=== PATIENT | male | born 1945 | race Caucasian/White ===

== ENCOUNTER 2020-04-10 10:33 | Outpatient (CLI) | payer MEDICARE, SELFPAY ==
--- NOTE | ~2020-04-10 | CT_ITS ---
EXAMINATION: CT soft tissue neck w con DATE: 04/10/2020 11:20 INDICATION: Neck swelling and pain TECHNIQUE: Computed tomography (CT) of the neck was performed with 75 mL Omnipaque-350 intravenous co ntrast. Automated exposure control and iterative reconstruction technique were employed. The dose-leif gth product was 590.09 mGy-cm. COMPARISON: None FINDINGS: Thyroid gland is normal. Submandibular and parotid glands are normal and symmetric. There are scatt ered normal-sized lymph nodes in the neck, no lymphadenopathy. No masses or abnormal fluid collectio ns identified. Mild atherosclerotic disease along the bilateral carotid bulbs and at the bilateral ca rotid siphons, all without hemodynamically significant stenosis. Normal epiglottis. Airway is unremar kable. Moderate to severe cervical spondylosis. Orbits are normal. Mild mucosal thickening in the elieser ateral ethmoid and left maxillary sinuses with mucous retention cyst at the inferior left maxillary s inus. Mastoid air cells and middle ear cavities are clear. Mild respiratory motion with no evident ai rspace disease in the visualized upper lungs. Calcified subcarinal lymph nodes consistent with old gr anulomatous disease. Visualized superior mediastinum is otherwise unremarkable. IMPRESSION: 1. No focal soft tissue swelling, abnormal mass or fluid collections identified to explain patient's reported facial swelling along the jaw line. Reviewed, dictated and finalized at location A.
[2020-04-10 11:12] LABS: Estimated Glomerular Filt Rate > 60
== END 2020-04-10 10:34 | disposition home or self-care (01) ==
PROVIDERS: PCP Internal Medicine; Visit Provider Nurse Practitioner
DX: R22.1 Localized swelling, mass and lump, neck (principal)
CPT/HCPCS: 70491; Q9967

== ENCOUNTER 2023-09-08 13:42 | Outpatient (CLI) | payer MEDICARE, SELFPAY ==
--- NOTE | ~2023-09-08 | XR_ITS ---
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 The procedure including the risks, benefits, and alternatives was discussed with the pat ient. Risks discussed included bleeding and infection. The patient understood the risks and agreed to proceed. Attention was first turned to the right glenohumeral joint. The skin overlying the rotator cuff interval of the right glenohumeral joint was prepped and draped in usual sterile fashion. Anest hetic was administered with 1% lidocaine subcutaneously. A 22 G needle was advanced under fluoroscop ic guidance into the joint. Injection of 1 mL of Omnipaque 240 confirmed intra-articular position of the needle. Subsequently, injectate consisting of 5 mm a 4:1 mixture of 1% lidocaine: 80 mg/mL Depo -Medrol for a total dosage of 80 mg Depo-Medrol was instilled. Washout of contrast was seen confirmin g intra-articular administration. The needle was removed and the entry site was cleaned and dressed. Attention was then turned to the left humeral joint. The skin overlying the rotator cuff interval of the left glenohumeral joint was prepped and draped in usual sterile fashion. Anesthetic was administ ered with 1% lidocaine subcutaneously. A 22 G needle was advanced under fluoroscopic guidance into t he joint. Injection of 1 mL of Omnipaque 240 confirmed intra-articular position of the needle. Subs equently, injectate consisting of 5 mm a 4:1 mixture of 1% lidocaine: 80 mg/mL Depo-Medrol for a tota l dosage of 80 mg Depo-Medrol was instilled. Washout of contrast was seen confirming intra-articular administration. The needle was removed and the entry site was cleaned and dressed. There were no imme diate complications. Fluoroscopy exposure time for the combined procedures was 0.2 minutes. The total number of images was 4. FINDINGS: Real-time fluoroscopy demonstrates the needle and contrast in both the left and right gleno humeral joints. Patient's pain prior to procedure:5/10. Patient's pain following the procedure: 0/10 . IMPRESSION: 1. Successful right glenohumeral joint injection of local anesthetic and steroid with decrease in the patient's presenting pain. 2. Successful left glenohumeral joint injection of local anesthetic and steroid with decrease in the patient's presenting pain. Reviewed, dictated and finalized at location A. IMPRESSION: 1. Successful right glenohumeral joint injection of local anesthetic and steroi d with decrease in the patient's presenting pain. 2. Successful left glenohumeral joint injection of local anesthetic and steroid with decrease in the patient's presenting pain.
== END 2023-09-08 13:43 | disposition home or self-care (01) ==
LOC: ANHIMG 13:43
PROVIDERS: PCP Internal Medicine; Visit Provider Orthopaedic Surgery
DX: M16.0 Bilateral primary osteoarthritis of hip (principal)
CPT/HCPCS: 20610; 77002; J1040; Q9966

== ENCOUNTER 2024-04-25 14:03 | Outpatient (CLI) | payer MEDICARE, SELFPAY ==
--- NOTE | ~2024-04-25 | XR_ITS ---
EXAMINATION: XR lg joint inject/asp add DATE: 04/25/2024 14:50 INDICATION: Primary osteoarthritis, left shoulder. TECHNIQUE: A time-out was performed to verify the patient's name, date of , and procedure to b e performed. The procedure including the risks, benefits, and alternatives was discussed with the pat ient. Risks discussed included bleeding and infection. The patient understood the risks and agreed to proceed. The skin overlying the left glenohumeral joint was prepped and draped in usual sterile fas hion. Anesthetic was administered with 1% lidocaine subcutaneously. A 22 G needle was advanced unde r fluoroscopic guidance into the joint. Subsequently, injectate consisting of 4 mL 1% lidocaine and 1 mL 80 mg/mL Depo-Medrol was instilled. The needle was removed and the entry site was cleaned and d ressed. There were no immediate complications. Fluoroscopy exposure time was 0.1 minutes. The total number of images was 1. FINDINGS: Real-time fluoroscopy demonstrates the needle in the left glenohumeral joint. Patient's fabiana n prior to procedure:01/29. Patient's pain following the procedure: 07/01. IMPRESSION: 1. Fluoroscopy guided left glenohumeral joint injection of local anesthetic and steroid with decrease in the patient's presenting pain. Reviewed, dictated and finalized at location A. CLE[employer]
--- NOTE | ~2024-04-25 | XR_ITS ---
EXAMINATION: XR lg joint inject/asp w image DATE: 04/25/2024 14:49 INDICATION: Primary osteoarthritis, right shoulder. TECHNIQUE: A time-out was performed to verify the patient's name, date of , and procedure to b e performed. The procedure including the risks, benefits, and alternatives was discussed with the pat ient. Risks discussed included bleeding and infection. The patient understood the risks and agreed to proceed. The skin overlying the right glenohumeral joint was prepped and draped in usual sterile fa shion. Anesthetic was administered with 1% lidocaine subcutaneously. A 22 G needle was advanced und er fluoroscopic guidance into the joint. Subsequently, injectate consisting of 4 mL 1% lidocaine and 1 mL 80 mg/mL Depo-Medrol was instilled. The needle was removed and the entry site was cleaned and dressed. There were no immediate complications. Fluoroscopy exposure time was 0.1 minutes. The total number of images was 1. FINDINGS: Real-time fluoroscopy demonstrates the needle in the right glenohumeral joint. Patient's pa in prior to procedure:4/10. Patient's pain following the procedure: 0/10. IMPRESSION: 1. Fluoroscopy guided right glenohumeral joint injection of local anesthetic and steroid with decreas e in the patient's presenting pain. Reviewed, dictated and finalized at location A. LOPMENT REP IMPRESSION: 1. Fluoroscopy guided right glenohumeral joint injection of local anesthetic an d steroid with decrease in the patient's presenting pain.
== END 2024-04-25 14:04 | disposition home or self-care (01) ==
PROVIDERS: PCP Family Medicine; Visit Provider Physician Assistant Surgical
DX: M19.011 Primary osteoarthritis, right shoulder (principal); M19.012 Primary osteoarthritis, left shoulder
CPT/HCPCS: 20610; 77002; J1010; J2003